=== PATIENT | female | born 1965 | race Caucasian/White ===

== ENCOUNTER → 2018-04-20 | Outpatient (CLI) | payer BC ==
[2018-04-20 16:58] LABS: BASO % 0.3 % (0.0-2.0); EOS % 0.4 % (0-4.0); GRAN % 65.2 % (42.2-75.2); HEMATOCRIT 40.2 % (37.0-47.0); HEMOGLOBIN 12.9 g/dl (12.5-16.0); LYMPH # 2.4 (1.2-3.4); MEAN CELL VOLUME 90 fl (80.0-100.0); MEAN CORPUSCULAR HEMOGLOBIN 29 pg (27.0-31.0); MEAN CORPUSCULAR HGB CONC 32 g/dl (33.0-37.0); MEAN PLATELET VOLUME 8.1 fl (7.4-10.4); MONO # 0.7 (0.1-0.6); MONO % 7.7 % (1.7-9.3); PLATELET COUNT 509 K/mm3 (130-400); RED BLOOD COUNT 4.48 M/mm3 (4.10-5.30); REDCELL DISTRIBUTION WIDTH-CV 12.8 % (11.5-14.5)
[2018-04-20 17:05] LABS: PH 6 (5-8); URINE APPEARANCE Clear; URINE BACTERIA None Seen /hpf; URINE BILIRUBIN Negative (NEGATIVE); URINE BLOOD Negative (NEGATIVE); URINE COLOR Straw; URINE GLUCOSE Negative (NEGATIVE); URINE KETONE Negative (NEGATIVE); URINE LEUKOCYTE ESTERASE Trace (NEGATIVE); URINE NITRATE Negative (NEGATIVE); URINE PROTEIN(semi-quant) Negative (NEGATIVE); URINE RBC 0-2 /hpf; URINE UROBILINOGEN Negative (NEGATIVE)
[2018-04-20 17:09] LABS: COLLECTION METHOD CLEAN CATCH
[2018-04-20 17:13] LABS: ALBUMIN 4.6 gm/dL (3.5-5.0); BILIRUBIN,TOTAL 0.6 mg/dL (0.0-1.0); C-REACTIVE PROTEIN 0.9 mg/dL (0.0-0.9); CALCIUM 9.5 mg/dL (8.4-10.2); CREATININE, serum 0.66 mg/dL (0.52-1.25); POTASSIUM 4.3 mmol/L (3.4-5.0); TOTAL PROTEIN 7.8 gm/dL (6.4-8.2)
== END ==
LOC: COL.LAB 16:11
PROVIDERS: Nurse Practitioner Primary Care
DX: R10.9 Unspecified abdominal pain (principal)

== ENCOUNTER → 2018-04-20 | Outpatient (CLI) | payer BC | LOC: COL.RAD 14:00 | DX: K38.9 Disease of appendix, unspecified (principal); Z90.49 Acquired absence of other specified parts of digestive tract; Z90.710 Acquired absence of both cervix and uterus | CPT/HCPCS: Q9967 ==

== ENCOUNTER 2018-04-30 10:11 | Emergency (ER) | payer BC ==
[~2018-04-30] VITALS: Ht 165.1 cm; Wt 79.5 kg
[2018-04-30 10:22] VITALS: TEMP 99.5
[2018-04-30 10:53] LABS: COLLECTION METHOD CLEAN CATCH
[2018-04-30 10:57] LABS: BASO # 0.1 (0.0-0.2); BASO % 0.6 % (0.0-2.0); EOS # 0.1 (0.0-0.7); EOS % 0.6 % (0-4.0); GRAN # 5.8 (1.4-6.5); GRAN % 66.5 % (42.2-75.2); HEMATOCRIT 41.2 % (37.0-47.0); HEMOGLOBIN 13.3 g/dl (12.5-16.0); LYMPH # 2.1 (1.2-3.4); LYMPH % 24.1 % (20.0-51.0); MEAN CELL VOLUME 90 fl (80.0-100.0); MEAN CORPUSCULAR HEMOGLOBIN 29 pg (27.0-31.0); MEAN CORPUSCULAR HGB CONC 32 g/dl (33.0-37.0); MEAN PLATELET VOLUME 8.3 fl (7.4-10.4); MONO # 0.7 (0.1-0.6); MONO % 7.7 % (1.7-9.3); PLATELET COUNT 468 K/mm3 (130-400); RED BLOOD COUNT 4.58 M/mm3 (4.10-5.30); REDCELL DISTRIBUTION WIDTH-CV 12.8 % (11.5-14.5)
[2018-04-30 11:00] LABS: PH 7 (5-8); URINE APPEARANCE Clear; URINE BACTERIA Rare /hpf; URINE BILIRUBIN Negative (NEGATIVE); URINE BLOOD Negative (NEGATIVE); URINE COLOR Yellow; URINE GLUCOSE Negative (NEGATIVE); URINE KETONE Negative (NEGATIVE); URINE LEUKOCYTE ESTERASE 1+ (NEGATIVE); URINE NITRATE Negative (NEGATIVE); URINE PROTEIN(semi-quant) Negative (NEGATIVE); URINE RBC 0-2 /hpf; URINE UROBILINOGEN Negative (NEGATIVE)
[2018-04-30 11:11] LABS: ALBUMIN 4.6 gm/dL (3.5-5.0); BILIRUBIN,TOTAL 0.7 mg/dL (0.0-1.0); C-REACTIVE PROTEIN 0.9 mg/dL (0.0-0.9); CALCIUM 9.4 mg/dL (8.4-10.2); CREATININE, serum 0.67 mg/dL (0.52-1.25); POTASSIUM 3.6 mmol/L (3.4-5.0); TOTAL PROTEIN 7.7 gm/dL (6.4-8.2)
[2018-04-30] MEDS ORDERED: CYMBALTA 60MG60 MG PO (11:25)
[2018-04-30] MEDS ORDERED: MOBIC 7.5MG7.5 MG PO (11:26)
[2018-04-30] MEDS ORDERED: COZAAR 50MG50 MG/TAB PO (11:26)
[2018-04-30] MEDS ORDERED: PROTONIX 40MG T40 MG PO (11:26)
[2018-04-30] MEDS ORDERED: DESYREL 50MG50 MG PO (11:27)
[2018-04-30] MEDS ORDERED: CALCIUM 600600 M2 PO (11:27)
[2018-04-30] MEDS ORDERED: FLEXERIL 1010 MG/TAB PO (11:28)
[2018-04-30] MEDS ORDERED: SINGULAIR 110 MG/TAB PO (11:28)
[2018-04-30] MEDS ORDERED: ZOFRAN ODT4 MG PO (13:56)
[2018-04-30] MEDS ORDERED: ROXICODONE 55 MG/TAB PO (13:56)
[2018-04-30 14:23] VITALS: BP 117/68; PULSE 64
== END 2018-04-30 14:23 | disposition home or self-care (01) ==
LOC: COL.ER 10:11
PROVIDERS: Emergency Medicine
DX: R10.31 Right lower quadrant pain (principal); Z79.1 Long term (current) use of non-steroidal anti-inflammatories (NSAID); Z90.49 Acquired absence of other specified parts of digestive tract; Z90.710 Acquired absence of both cervix and uterus
CPT/HCPCS: J1170; J2270; J2405; J2550; J7030; Q9967

== ENCOUNTER 2018-05-02 12:16 | Day surgery (SDC) | payer BC ==
[~2018-05-02] VITALS: Ht 165.1 cm; Wt 79.4 kg
[~2018-05-02 12:16] MED LIST: CALCIUM 600600 M2 PO; COZAAR 50MG50 MG/TAB PO; CYMBALTA 60MG60 MG PO; DESYREL 50MG50 MG PO; FLEXERIL 1010 MG/TAB PO; MOBIC 7.5MG7.5 MG PO; PROTONIX 40MG T40 MG PO; ROXICODONE 55 MG/TAB PO; SINGULAIR 110 MG/TAB PO; ZOFRAN ODT4 MG PO
[2018-05-02 12:42] VITALS: BP 133/70; PULSE 82; TEMP 98.4
[2018-05-02] MEDS ORDERED: NORCO 325 MG-51 TAB PO (16:56)
[2018-05-02 17:40] VITALS: BP 129/64; PULSE 58; TEMP 97.6
[2018-05-02 17:55] VITALS: BP 121/55; PULSE 73
[2018-05-02 18:10] VITALS: BP 113/59; PULSE 56
[2018-05-02 18:25] VITALS: BP 118/50; PULSE 73
== END 2018-05-02 18:43 | disposition home or self-care (01) ==
LOC: SDCO 12:16
DX: K38.8 Other specified diseases of appendix (principal); Z79.899 Other long term (current) drug therapy; I10 Essential (primary) hypertension; K21.9 Gastro-esophageal reflux disease without esophagitis; M81.0 Age-related osteoporosis without current pathological fracture; Z87.440 Personal history of urinary (tract) infections; Z80.7 Family history of other malignant neoplasms of lymphoid, hematopoietic and related tissues
CPT/HCPCS: J1100; J2405; J2704; J2710; J2765; J3010; J7120

== ENCOUNTER → 2018-05-25 | Outpatient (CLI) | payer BC ==
[~2018-05-25] MED LIST changes: +NORCO 325 MG-51 TAB PO
== END ==
LOC: COL.RAD 07:24
DX: R11.0 Nausea (principal)
CPT/HCPCS: A9541